=== PATIENT | female | born 1990 | race Caucasian/White ===

== ENCOUNTER 2016-06-25 16:26 | Emergency (ER) | payer BC, OTHER ==
[2016-06-25 17:47] VITALS: BP 124/63
--- NOTE | 2016-06-25 19:27 | UC ---
Darshan Preciado Billy, scribed for Frances Chavez DO on 06/25/16 at 1847 . Headache HPI - HPI Summary HPI Summary: Patient is a 26 year-old female [place] [facility] [place] to work. She states that she was diagnosed with a concussion at [facility] after a head injury 5 days ago. At the time, she had roomspinning, blurred vision, confusion, photophobia, and phonophobia. Her symptoms improved rapidly with rest. She states that she now woke up with "minimal temporal tension headache" in the morning completely resolved with ibuprofen and did not return with normal levels of brain stimulation thoughout the day, including more hours of computer work. Pain severity 2/10 in the morning before ibuprofen. The other symptoms do not return with stimulation or computer screens at work. She states that her headache feels very similar to previous "caffeine headaches" which she will get if she does not drink coffee(pt is excessive caffeine user > 350mg/day). In fact, she has not had caffeine since injury. - History Of Current Complaint Chief Complaint: UC Stated Complaint: HEAD INJURY FOLLOW UP Time Seen by Provider: 06/25/16 18:37 Hx Obtained From: Patient Hx Last Menstrual Period: 06/18/16 ?: No Onset/Duration: Gradual Onset, Lasting Days, Resolved Initially Headache Was: Mild Pain Intensity: 2 Pain Scale Used: 0-10 Numeric Timing: Constant Character: Typical Headache - caffeine melendrez Location of Headache: Temporal Aggravating Factor: Nothing Allevating Factors: Medication - Ibuprofen Associated Signs And Symptoms: Positive: Negative - Allergies/Home Medications Allergies/Adverse Reactions: Allergies Allergy/AdvReac Type Severity Reaction Status Date / Time Fluoxetine [From Prozac] Allergy See Comment Verified 06/25/16 17:40 Wheat Bran Allergy GI Upset Verified 06/25/16 17:40 dairy Allergy GI Upset Uncoded 06/25/16 17:40 Home Medications: Home Medications Ibuprofen [Ibuprofen 200 MG] 400 mg PO Q6H PRN 06/25/16 [History Confirmed 06/25] PMH/Surg Hx/FS Hx/Imm Hx Endocrine History Of: Denies: Diabetes, Thyroid Disease Cardiovascular History Of: Reports: Cardiac Disorders - POT syndrome Denies: Hypertension, Pacemaker/ICD Respiratory History Of: Reports: Asthma Denies: COPD GI/ History Of: Reports: Gastroesophageal Reflux Denies: Renal Disease Neurological History Of: Denies: CVA, Dementia, Seizures Psychological History Of: Reports: Bipolar Disorder, Post Traumatic Stress Disorder Other History Of: Negative For: Anticoagulant Therapy - Surgical History Surgical History: Yes Surgery Procedure, Year, and Place: BENIGN LUMP REMOVED FROM NOSE - Social History Alcohol Use: Occasionally Substance Use Type: None Smoking Status (MU): Never Smoked Tobacco - Immunization History Most Recent Influenza Vaccination: none Review of Systems Constitutional: Negative Skin: Negative Eyes: Negative ENT: Negative Respiratory: Negative Cardiovascular: Negative Gastrointestinal: Negative Genitourinary: Negative Motor: Negative Neurovascular: Negative Musculoskeletal: Negative Neurological: Headache Psychological: Negative All Other Systems Reviewed And Are Negative: Yes Physical Exam Triage Information Reviewed: Yes Appearance: Well-Appearing, No Pain Distress, Well-Nourished Vital Signs: Initial Vital Signs Temp 99.2 F 06/25/16 17:42 Pulse 64 06/25/16 17:42 Resp 16 06/25/16 17:42 BP 124/63 06/25/16 17:42 Pulse Ox 97 06/25/16 17:42 Vital Signs Reviewed: Yes Eyes: Positive: Conjunctiva Clear. Negative: Discharge ENT: Positive: Hearing grossly normal. Negative: Muffled/hoarse voice Neck: Positive: Supple, Nontender Respiratory: Positive: Lungs clear, Normal breath sounds, No respiratory distress, No accessory muscle use Cardiovascular: Positive: RRR, No Murmur Musculoskeletal Exam: Normal Musculoskeletal: Positive: Strength Intact Neurological: Positive: Alert, Muscle Tone Normal, Other: - A&Ox3, CN II-XII INTACT, SENSORY MOTOR INTACT, REFLEXES INTACT, NO CEREBELLAR SIGNS, FACIAL SYMMETRY, RHOMBERG'S NEG, NORMAL GAIT. Psychological: Positive: Age Appropriate Behavior Skin Exam: Normal - Normal dry skin. Headache Course/Dx - Differential Dx/Diagnosis Provider Diagnoses: CONCUSSION - RESOLVED Discharge - Discharge Plan Condition: Stable Disposition: HOME Patient Education Materials: Concussion (ED) Forms: *Work Release Referrals: [facility] [place] PHYSICIAN REFERRAL [Outside] Additional Instructions: IT SEEMS THOUGH YOUR CONCUSSION SYMPTOMS RESOLVED. SO YOU CAN RETURN TO WORK UNRESTRICTED. RETURN TO CONVENIENT CARE WITH ANY RETURNING HEADACHES, CONFUSION, BLURRED VISION, PHOTOPHOBIA, OR PHONOPHOBIA. IF THOSE SYMPTOMS RETURN , YOU MAY NEED MORE BRAIN REST. The documentation as recorded by the Darshan shafer Billy accurately reflects the service I personally performed and the decisions made by me, Frances Chavez DO.
== END 2016-06-25 19:05 | disposition home or self-care (01) ==
LOC: UCEAST 16:26
DX: S06.0X9D Concussion with loss of consciousness of unspecified duration, subsequent encounter (principal); X58.XXXD Exposure to other specified factors, subsequent encounter
CPT/HCPCS: 99211; G0463

== ENCOUNTER 2016-06-26 19:07 | Emergency (ER) | payer BC, OTHER ==
[2016-06-26 19:22] VITALS: BP 130/66
--- NOTE | 2016-06-26 20:28 | ED ---
Roxana Preciado Michael, scribed for Tahmina Ch MD on 06/26/16 at 2003 . GI/ HPI - HPI Summary HPI Summary: 26 y/o female comes to the ED presenting with one episode of bright red blood in her stool today. The pt reports that the blood was around and not mixed in the stool. She also c/o diarrhea for the past 3 days. Today the pt only had one BM, but the past 2 days she has had 3-4 episodes of diarrhea. She notes recovery from a concussion and had a moderate ROMERO and lightheadedness today. The pt has taken an increased amount of Ibuprofen for the concussion. She denies abd pain, taking antibiotics, and camping. The PMHx is significant for anal fissures. - History of Current Complaint Chief Complaint: EDGIBleed Time Seen by Provider: 06/26/16 19:24 Stated Complaint: BLOODY STOOL Hx Obtained From: Patient, Medical Records Onset/Duration: Started Hours Ago Timing: Intermittent - 1 Severity: Moderate Current Severity: Moderate Location of Pain: None Associated Signs and Symptoms: Positive: Bright Red Blood w/Stool, Diarrhea, Other: - ROMERO. lightheadedness. Aggravating Factor(s): Nothing Alleviating Factor(s): Spontaneous Resolution - Allergy/Home Medications Allergies/Adverse Reactions: Allergies Allergy/AdvReac Type Severity Reaction Status Date / Time Fluoxetine [From Prozac] Allergy See Comment Verified 06/25/16 17:40 Wheat Bran Allergy GI Upset Verified 06/25/16 17:40 dairy Allergy GI Upset Uncoded 06/25/16 17:40 PMH/Surg Hx/FS Hx/Imm Hx Endocrine/Hematology History: Denies: Hx Anticoagulant Therapy, Hx Diabetes, Hx Thyroid Disease Cardiovascular History: Denies: Hx Hypertension, Hx Pacemaker/ICD Respiratory History: Reports: Hx Asthma Denies: Hx Chronic Obstructive Pulmonary Disease (COPD) History: Denies: Hx Renal Disease Sensory History: Denies: Hx Hearing Aid Neurological History: Denies: Hx Dementia, Hx Seizures Psychiatric History: Reports: Hx Bipolar Disorder Denies: Hx Panic Disorder, Hx Substance Abuse - Surgical History Surgery Procedure, Year, and Place: BENIGN LUMP REMOVED FROM NOSE Infectious Disease History: No Infectious Disease History: Denies: Hx Hepatitis, Hx Human Immunodeficiency Virus (HIV), Traveled Outside the in Last 30 Days - [facility] 05/06-05/13 - Family History Known Family History: Positive: Diabetes - Social History Occupation: Employed Full-time Lives: Alone Alcohol Use: Occasionally Substance Use Type: Reports: None Smoking Status (MU): Never Smoked Tobacco Review of Systems Negative: Fever Positive: Diarrhea, Other - stool with blood. Negative: Abdominal Pain Neurological: Other - lightheadedness Positive: Headache All Other Systems Reviewed And Are Negative: Yes Physical Exam Triage Information Reviewed: Yes Vital Signs On Initial Exam: Initial Vitals Temp Pulse Resp BP Pulse Ox 98.4 F 69 16 130/66 100 06/26/16 19:14 06/26/16 19:14 06/26/16 19:14 06/26/16 19:14 06/26/16 19:14 Vital Signs Reviewed: Yes Appearance: Positive: Well-Appearing, No Pain Distress Skin: Positive: Warm, Skin Color Reflects Adequate Perfusion, Dry Eyes: Positive: EOMI, KELLIE ENT: Positive: Pharynx normal, TMs normal Neck: Positive: Supple, Nontender Respiratory/Lung Sounds: Positive: Clear to Auscultation, Breath Sounds Present. Negative: Rales, Rhonchi, Wheezes Cardiovascular: Positive: RRR, Other - no gallops. Negative: Murmur, Rub Abdomen Description: Positive: Nontender, Soft, Other: - no rebound. Negative: Distended, Guarding Bowel Sounds: Positive: Present Musculoskeletal: Positive: Strength/ROM Intact. Negative: Edema Left, Edema Right Neurological: Positive: Sensory/Motor Intact, Alert, Oriented to Person Place, Time, CN Intact II-III Psychiatric: Positive: Affect/Mood Appropriate Diagnostics - Vital Signs Vital Signs Temp Pulse Resp BP Pulse Ox 06/26/16 19:14 98.4 F 69 16 130/66 100 - Laboratory Lab Statement: Any lab studies that have been ordered have been reviewed, and results considered in the medical decision making process. GIGU Course/Dx - Course Course Of Treatment: pt without abd pain or tenderness. rectal no stool ,no external hemorrhoid and no fissure. she did have a few days of diarrhea but no fever. Plan is to watch for a few days, if increased temp or pain 3 days of azithro sent to pharmacy. Pt does not ahve access to primary care - Diagnoses Provider Diagnoses: Hemorrhoids Discharge - Discharge Plan Condition: Improved Disposition: HOME Prescriptions: Azithromycin [Azithromycin 500 MG TAB] 500 mg PO DAILY #3 tab Patient Education Materials: Hemorrhoids (ED) [place] [facility] [place]] Additional Instructions: You will follow up with [facility] within the next 3-4 days. Please return to the ED for any worsening symptoms. The documentation as recorded by the Roxana shafer Michael accurately reflects the service I personally performed and the decisions made by me, Tahmina Ch MD.
== END 2016-06-26 20:13 | disposition home or self-care (01) ==
LOC: ED 19:07
DX: K64.9 Unspecified hemorrhoids (principal); F31.9 Bipolar disorder, unspecified
CPT/HCPCS: 99282

== ENCOUNTER 2016-10-25 20:39 | Emergency (ER) | payer SELFPAY ==
[2016-10-25] MEDS ORDERED: Ketorolac INJ* 60 MG/2 ML VIAL IM ONE (21:43)
--- NOTE | 2016-10-25 21:49 | RAD ---
Indication: Pain in her LEFT ankle noted while walking fast. Comparison: No relevant prior exams available on the [facility] [place]. Technique: AP, mortise, and lateral views LEFT ankle. Report: Congruent ankle mortise and normal articular alignment throughout. Negative for fracture or osteochondral lesion. Os trigonum accessory ossicle. Unremarkable soft tissue contours. IMPRESSION: Negative exam.
--- NOTE | 2016-10-25 22:00 | ED ---
Lower Extremity - HPI Summary HPI Summary: 26 female presents with complaints of right ankle pain that began around 8pm today while walking at work. 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 Patient has chronic pain in her right ankle with trouble pronating and when she walks/runs a lot it aches. However she has never pain this bad before. Admits to feeling paresthesias and burning. Has been unable to bear weight without sharp pain since incident. Admits to some swelling, denies bruising. Has not taken any medications. Denies significant PMHx. Denies any twisting or known injury/trauma. She was just walking normally. - History of Current Complaint Chief Complaint: EDExtremityLower Stated Complaint: RIGHT ANKLE PAIN Time Seen by Provider: 10/25/16 21:06 Hx Obtained From: Patient Hx Last Menstrual Period: 06/18/16 Mechanism Of Injury: Unknown - walking Onset of Pain: Immediate, Post Accident Onset/Duration: Hours Severity Initially: Moderate Severity Currently: Moderate Pain Intensity: 7 Pain Scale Used: 0-10 Numeric Timing: Constant Location: Is Discrete @ - left medial ankle Character Of Pain: Sharp, Aching, Burning Associated Signs And Symptoms: Positive: Swelling Aggravating Factor(s): Standing, Ambulation, Weight Bearing Alleviating Factor(s): Rest Able to Bear Weight: Yes - however causes pain, so refrains - Allergies/Home Medications Allergies/Adverse Reactions: Allergies Allergy/AdvReac Type Severity Reaction Status Date / Time Fluoxetine [From Prozac] Allergy See Comment Verified 06/25/16 17:40 Wheat Bran Allergy GI Upset Verified 06/25/16 17:40 dairy Allergy GI Upset Uncoded 06/25/16 17:40 PMH/Surg Hx/FS Hx/Imm Hx Endocrine/Hematology History: Denies: Hx Anticoagulant Therapy, Hx Diabetes, Hx Thyroid Disease Cardiovascular History: Denies: Hx Hypertension, Hx Pacemaker/ICD Respiratory History: Reports: Hx Asthma Denies: Hx Chronic Obstructive Pulmonary Disease (COPD) History: Denies: Hx Renal Disease Sensory History: Denies: Hx Hearing Aid Neurological History: Denies: Hx Dementia, Hx Seizures Psychiatric History: Reports: Hx Bipolar Disorder Denies: Hx Panic Disorder, Hx Substance Abuse - Surgical History Surgery Procedure, Year, and Place: BENIGN LUMP REMOVED FROM NOSE - Immunization History Immunizations Up to Date: Yes Infectious Disease History: No Infectious Disease History: Denies: Hx Hepatitis, Hx Human Immunodeficiency Virus (HIV), Traveled Outside the [place] in Last 30 Days - Family History Known Family History: Positive: Diabetes - Social History Alcohol Use: Weekly Substance Use Type: Reports: None Smoking Status (MU): Never Smoked Tobacco Review of Systems Constitutional: Negative Cardiovascular: Negative Respiratory: Negative Positive: Arthralgia, Myalgia Skin: Negative Positive: Paresthesia All Other Systems Reviewed And Are Negative: Yes Physical Exam Triage Information Reviewed: Yes Vital Signs On Initial Exam: Initial Vitals Temp Pulse Resp BP Pulse Ox 97.6 F 84 16 136/65 100 10/25/16 20:45 10/25/16 20:45 10/25/16 20:45 10/25/16 20:45 10/25/16 20:45 Vital Signs Reviewed: Yes Appearance: Positive: Well-Appearing, No Pain Distress, Well-Nourished Skin: Positive: Warm, Skin Color Reflects Adequate Perfusion, Dry. Negative: Cold, Numb, Tender, Soft, Cyanosis @, Pale, Erythema @ Head/Face: Positive: Normal Head/Face Inspection Eyes: Positive: Normal, Conjunctiva Clear ENT: Positive: Normal ENT inspection, Hearing grossly normal Neck: Positive: Supple, Nontender Respiratory/Lung Sounds: Positive: Clear to Auscultation, Breath Sounds Present. Negative: Rales, Rhonchi, Wheezes Cardiovascular: Positive: Normal, RRR, Pulses are Symmetrical in both Upper and Lower Extremities - 2+ pedal b/l. Negative: Murmur, Rub, Leg Edema Left, Leg Edema Right Abdomen Description: Positive: Nontender, Soft Bowel Sounds: Positive: Present Musculoskeletal: Positive: Strength/ROM Intact - with flexion and extension, Pain @ - mild tenderness on palpation of medial right ankle, distal medial malleolous, Other - no crepitus, obvious deformity, or step off noted. no ecchymosis or edema when compared to left ankle. pain not out of proportion to injury. no concern for acute compartment syndrome at this time. feliciano test negative. achilles tendon intact. Negative: Limited @, Interruption @, Yeni Sign Left, Yeni Sign Right, Edema Left, Edema Right Neurological: Positive: Normal, Sensory/Motor Intact - sensation and two point discrimination intact, same as left, Alert, Oriented to Person Place, Time, Reflexes Intact, NV Bundle Intact Distally, Unable to Assess Gait - due to patient preference and pain Psychiatric: Positive: Normal, Affect/Mood Appropriate AVPU Assessment: Alert Diagnostics - Vital Signs Vital Signs Temp Pulse Resp BP Pulse Ox 10/25/16 20:45 97.6 F 84 16 136/65 100 - Laboratory Lab Statement: Any lab studies that have been ordered have been reviewed, and results considered in the medical decision making process. - Radiology right ankle Xray Interpretation: No Acute Changes - negative examination Radiology Interpretation Completed By: Radiologist Re-Evaluation - Re-Evaluation First Eval Re-Evaluation Time: 22:45 Change: Improved - had some relief after toradol Lower Extremity Course/Dx - Course Course Of Treatment: given toradol for pain and inflammation. x-ray obtained and negative. ankle sparin/ligamentous injury. taniya bandage for support. RICE and continue ibuprofen/aleve at home. Follow up with PCP. Aware of worsening signs and symptoms. Educated on compartment syndrome. Return if occur. - Diagnoses Differential Diagnosis/HQI/PQRI: Positive: Arthritis, Cellulitis, Compartment Syndrome, Contusion, Dislocation, Fracture (Closed), Sprain, Strain, Tendonitis Provider Diagnoses: Right ankle sprain Discharge - Discharge Plan Condition: Stable Disposition: HOME Patient Education Materials: Ankle Sprain (ED) Forms: *Work Release Referrals: No Primary Care Phys,NOPCP [Primary Care Provider] - [facility] [place]FERR[place] [Outside] Additional Instructions: Take ibuprofen and aleve for pain and inflammation. Rest, elevate and ice. Use brace for extra support. Follow up with PCP. If symptoms worsen or do not improve, please seek medical attention promptly.
[2016-10-25 22:38] VITALS: BP 121/62
== END 2016-10-25 22:36 | disposition home or self-care (01) ==
LOC: ED 20:39
DX: S93.401A Sprain of unspecified ligament of right ankle, initial encounter (principal); X58.XXXA Exposure to other specified factors, initial encounter; Y93.9 Activity, unspecified; Y92.9 Unspecified place or not applicable
CPT/HCPCS: 96372; 99282; J1885